=== PATIENT | male | born 1960 | race Caucasian/White ===

== ENCOUNTER 2017-11-25 05:57 | Day surgery (SDC) | payer OTHER ==
[~2017-11-25 05:57] MED LIST: LOSARTAN-HCTZ1 EAC2 PO; SYNTHROID88 MCG PO
== END 2017-11-25 10:30 | disposition home or self-care (01) ==
LOC: AMB-ENDOS 05:57
DX: D12.2 Benign neoplasm of ascending colon (principal); D12.3 Benign neoplasm of transverse colon

== ENCOUNTER 2018-01-09 14:45 | Inpatient (IN) | payer OTHER ==
[~2018-01-09] VITALS: Ht 175.3 cm; Wt 136.5 kg
== END 2018-02-10 20:28 | DRG 329 ==
LOC: SURH 14:45 → O/R 01-13 08:45 → MEDI 01-13 19:51 → SURH 01-13 19:51
PROVIDERS: Colon & Rectal Surgery
PROC: 0DTP4ZZ Resection of Rectum, Percutaneous Endoscopic Approach (ICD-10-PCS; 2018-01-13)
PROC: 0D1B4Z4 Bypass Ileum to Cutaneous, Percutaneous Endoscopic Approach (ICD-10-PCS; 2018-01-13)
PROC: 07TC4ZZ Resection of Pelvis Lymphatic, Percutaneous Endoscopic Approach (ICD-10-PCS; 2018-01-13)
PROC: 4A1BXSH Monitoring of Gastrointestinal Vascular Perfusion using Indocyanine Green Dye, External Approach (ICD-10-PCS; 2018-01-13)
PROC: 5A1945Z Respiratory Ventilation, 24-96 Consecutive Hours (ICD-10-PCS; 2018-01-13)
PROC: 0BH17EZ Insertion of Endotracheal Airway into Trachea, Via Natural or Artificial Opening (ICD-10-PCS; 2018-01-13)
PROC: 0DTE4ZZ Resection of Large Intestine, Percutaneous Endoscopic Approach (ICD-10-PCS; principal; 2018-01-13 13:00)
PROC: 4A033R1 Measurement of Arterial Saturation, Peripheral, Percutaneous Approach (ICD-10-PCS; 2018-01-14)
PROC: 4A12X4Z Monitoring of Cardiac Electrical Activity, External Approach (ICD-10-PCS; 2018-01-16)
PROC: B030ZZZ Magnetic Resonance Imaging (MRI) of Brain (ICD-10-PCS; 2018-01-18)
PROC: 02HV33Z Insertion of Infusion Device into Superior Vena Cava, Percutaneous Approach (ICD-10-PCS; 2018-01-18)
PROC: 3E0F7GC Introduction of Other Therapeutic Substance into Respiratory Tract, Via Natural or Artificial Opening (ICD-10-PCS; 2018-01-19)
PROC: BW25Y0Z Computerized Tomography (CT Scan) of Chest, Abdomen and Pelvis using Other Contrast, Unenhanced and Enhanced (ICD-10-PCS; 2018-01-19)
PROC: 3E0436Z Introduction of Nutritional Substance into Central Vein, Percutaneous Approach (ICD-10-PCS; 2018-01-19)
PROC: BW25Y0Z Computerized Tomography (CT Scan) of Chest, Abdomen and Pelvis using Other Contrast, Unenhanced and Enhanced (ICD-10-PCS; 2018-01-23)
PROC: 0W9G30Z Drainage of Peritoneal Cavity with Drainage Device, Percutaneous Approach (ICD-10-PCS; 2018-01-24)
PROC: BT43ZZZ Ultrasonography of Bilateral Kidneys (ICD-10-PCS; 2018-01-29)
PROC: 30233N1 Transfusion of Nonautologous Red Blood Cells into Peripheral Vein, Percutaneous Approach (ICD-10-PCS; 2018-01-31)
PROC: BW25ZZZ Computerized Tomography (CT Scan) of Chest, Abdomen and Pelvis (ICD-10-PCS; 2018-02-02)
PROC: BW4GZZZ Ultrasonography of Pelvic Region (ICD-10-PCS; 2018-02-04)
PROC: 0T9B70Z Drainage of Bladder with Drainage Device, Via Natural or Artificial Opening (ICD-10-PCS; 2018-02-05)
DX: C20 Malignant neoplasm of rectum (principal); K65.1 Peritoneal abscess; J95.821 Acute postprocedural respiratory failure; J95.89 Other postprocedural complications and disorders of respiratory system, not elsewhere classified; J98.11 Atelectasis; J91.8 Pleural effusion in other conditions classified elsewhere; K56.0 Paralytic ileus; K91.89 Other postprocedural complications and disorders of digestive system; T81.4XXA Infection following a procedure, initial encounter; N17.8 Other acute kidney failure; L03.311 Cellulitis of abdominal wall; B37.89 Other sites of candidiasis; N13.8 Other obstructive and reflux uropathy; R59.0 Localized enlarged lymph nodes; E86.0 Dehydration; E66.01 Morbid (severe) obesity due to excess calories; G47.33 Obstructive sleep apnea (adult) (pediatric); D64.89 Other specified anemias; R09.02 Hypoxemia; M21.331 Wrist drop, right wrist; N99.0 Postprocedural (acute) (chronic) kidney failure; I10 Essential (primary) hypertension; E03.8 Other specified hypothyroidism; B96.29 Other Escherichia coli [E. coli] as the cause of diseases classified elsewhere; B96.4 Proteus (mirabilis) (morganii) as the cause of diseases classified elsewhere; B95.2 Enterococcus as the cause of diseases classified elsewhere; B37.2 Candidiasis of skin and nail; B95.1 Streptococcus, group B, as the cause of diseases classified elsewhere; M21.371 Foot drop, right foot
CPT/HCPCS: 70553

== ENCOUNTER → 2018-06-14 | Day surgery (SDC) | payer OTHER | END | disposition home or self-care (01) | LOC: AMB-ENDOS 06:41 → CIR.AMB 12:04 → AMB-ENDOS 12:10 | DX: K64.8 Other hemorrhoids (principal); K62.4 Stenosis of anus and rectum ==

== ENCOUNTER 2021-09-30 08:56 | Day surgery (SDC) | payer OTHER | END 2021-09-30 16:25 | disposition home or self-care (01) | LOC: AMB-ENDOS 08:56 | PROVIDERS: ATTEND Colon & Rectal Surgery | DX: K62.4 Stenosis of anus and rectum (principal); K55.1 Chronic vascular disorders of intestine; Z93.2 Ileostomy status; Z85.048 Personal history of other malignant neoplasm of rectum, rectosigmoid junction, and anus; Z20.822 Contact with and (suspected) exposure to COVID-19; Z88.0 Allergy status to penicillin; Z88.8 Allergy status to other drugs, medicaments and biological substances; I10 Essential (primary) hypertension; E03.9 Hypothyroidism, unspecified; K57.30 Diverticulosis of large intestine without perforation or abscess without bleeding ==

== ENCOUNTER 2022-11-15 09:57 | Day surgery (SDC) | payer OTHER ==
[~2022-11-15] VITALS: Ht 175.3 cm; Wt 78.0 kg
[~2022-11-15 09:57] MED LIST changes: +ACETAMINOPHEN500 M1; +ALL DAY ALLERGY10 MG; +ALLERGY RELIEF4 MG; +FENOFIBRATE160 MG; +GABAPENTIN300 M2; +HORIZANT300 MG PO; +IMODIUM A-D2 M2 PO; +MAGNESIUM250 M1 PO; +OMEPRAZOLE20 MG; +ONDANSETRON HCL8 MG; +PRILOSEC10 MG PO; +PROBIOTIC250 MG PO; +TAMS0.4C PO
[2022-11-25] MEDS ORDERED: SYNTHROID200 MCG PO (12:28)
== END 2022-11-15 23:10 | disposition home or self-care (01) ==
LOC: U 09:57 → CIR.AMB 09:57
PROVIDERS: ATTEND Colon & Rectal Surgery
DX: R15.9 Full incontinence of feces (principal); Z20.822 Contact with and (suspected) exposure to COVID-19; Z88.2 Allergy status to sulfonamides
CPT/HCPCS: 64581; 95971; C1778

== ENCOUNTER 2022-11-29 06:10 | Day surgery (SDC) | payer OTHER ==
[~2022-11-29 06:10] MED LIST changes: +SYNTHROID200 MCG PO
== END 2022-11-29 10:45 | disposition home or self-care (01) ==
LOC: CIR.AMB 06:10
PROVIDERS: ATTEND Colon & Rectal Surgery
DX: R15.9 Full incontinence of feces (principal); Z20.822 Contact with and (suspected) exposure to COVID-19; Z88.0 Allergy status to penicillin; Z88.2 Allergy status to sulfonamides
CPT/HCPCS: 64590; 95971; C1767

== ENCOUNTER 2023-04-13 10:01 | Emergency (ER) | payer OTHER ==
[~2023-04-13] VITALS: Ht 152.4 cm; Wt 123.4 kg
[2023-04-13 12:36] LABS: PH,URINE 5.5 (5.0-8.0); URINE APPEARANCE Clear; URINE BILIRRUBIN Negative (NEGATIVE); URINE BLOOD Trace; URINE COLOR Yellow; URINE GLUCOSE Negative (NEGATIVE); URINE LEUKOCYTE Negative; URINE NITRATE Negative; URINE UROBILINOGEN 0.2 E.U./dl
[2023-04-13 12:37] LABS: URINE BACTERIA 114.6 uL (0.0-1933); URINE RBC 16.3 uL (0.0-20.8); URINE WBC 3.3 uL (0.0-23.2)
[2023-04-13 12:50] LABS: HEMATOCRIT 40.2 % (39.0-48.0); HEMOGLOBIN 13.3 g/dL (13-16.00); MEAN CELL VOLUME 89.8 fL (80.0-100.00); MEAN CORPUSCULAR HEMOGLOBIN 29.7 pg (27.00-32.0); MEAN CORPUSCULAR HGB CONC 33.1 g/dl (32.0-36.0); PLATELET COUNT 254 K/uL (150-450); RED BLOOD COUNT 4.48 M/uL (4.00-6.00); RED CELL DISTRIBUTION WIDTH 13.6 % (11.5-14.5)
[2023-04-13 13:12] LABS: URINE PROTEIN 100 (NEGATIVE)
[2023-04-13 13:58] LABS: CALCIUM 8.9 mg/dL (8.5-10.1); CREATININE SERUM 1.05 mg/dL (0.70-1.30); GFR 71.8; POTASSIUM 3.93 mEq/L (3.5-5.1)
== END 2023-04-13 20:50 | disposition home or self-care (01) ==
LOC: ER 10:01
PROVIDERS: General Practice
DX: R10.32 Left lower quadrant pain (principal); Z85.038 Personal history of other malignant neoplasm of large intestine; Z93.2 Ileostomy status; K63.89 Other specified diseases of intestine; Z88.2 Allergy status to sulfonamides
CPT/HCPCS: 36415; 74176; 96372; 99284; J3490